=== PATIENT | female | born 1995 | race Caucasian/White ===

== ENCOUNTER 2017-07-12 20:26 | Emergency (ER) | payer OTHER ==
[2017-07-12 20:50] VITALS: BP 126/75; PULSE 83; TEMP 98.8; BMI 26.5
[2017-07-12] MEDS ORDERED: IBUPROFEN 400 MG TABLET (FP) PO ONE ×2 (21:24→21:29)
[2017-07-12] MEDS ORDERED: AMOX TR/POT CLAV 875MG/125MG TABLETS (FP) PO ONE (21:24)
[2017-07-12] MEDS ORDERED: AMOX TR/POT CLAV 875MG/125MG TABLETS (FP) ONE (21:29)
--- NOTE | 2017-07-12 21:31 | PDOC ---
History of Present Illness - General Chief Complaint: Sore Throat Stated Complaint: SORE THROAT Time Seen by Provider: 07/12/17 20:51 History Source: Patient Exam Limitations: No Limitations - History of Present Illness Initial Comments: 07/12/17 21:26 21yo Female patient with no significant past medical history presents to ED c/o left ear pain and sore throat. Patient reports symptoms began Saturday. She reports trouble swallowing solid foods without pain. She denies any other complaints at this time. LNMP: Jun 20. Timing/Duration: reports: week Severity: reports: moderate Episode Description: See HPI Possible Cause: Yes: no prior episodes Modifying Factors: worse with: activity, albuterol inhaler, albuterol nebulizer , antibiotics, coughing, lying down, oxygen, rest, other Associated Symptoms: reports: earache, sore throat. denies: denies symptoms, chest pain/soreness, cough, dizziness, facial pain, fever/chills, headache, lightheadedness, muscle aches, nasal congestion, nasal drainage, shortness of breath, sinus infection, wheezing, other Past History - Travel Traveled outside of the country in the last 30 days: No Close contact w/someone who was outside of country & ill: No - Past Medical History Allergies/Adverse Reactions: Allergies Allergy/AdvReac Type Severity Reaction Status Date / Time No Known Allergies Allergy Verified 07/12/17 20:50 Home Medications: Ambulatory Orders Amoxicillin/Potassium Clav [Augmentin 875-125 Tablet] 1 each PO Q12H #20 tablet 07/12/17 Ibuprofen 600 mg PO Q6H PRN #20 tablet 07/12/17 Other medical history: denies - Immunization History Immunization Up to Date: Yes - Suicide/Smoking/Psychosocial Hx Smoking History: Never smoked Have you smoked in the past 12 months: No Number of Cigarettes Smoked Daily: 0 Hx Alcohol Use: No Drug/Substance Use Hx: No Substance Use Type: None Respiratory Specific PMHX - Complaint Specific PMHX Angina: No Bronchitis: No Pneumonia: No Pulmonary Embolus: No TB (Tuberculosis): No Review of Systems - Review of Systems Able to Perform ROS?: Yes Is the patient limited Kittitian proficient: No Constitutional: No: Chills, Fever HEENTM: Yes: Ear Pain, Throat Pain All Other Systems: Reviewed and Negative *Physical Exam - Vital Signs Last Vital Signs Temp Pulse Resp BP Pulse Ox 98.8 F 83 18 126/75 99 07/12/17 20:48 07/12/17 20:48 07/12/17 20:48 07/12/17 20:48 07/12/17 20:48 - Physical Exam General Appearance: Yes: Nourished, Appropriately Dressed, Intoxicated. No: Apparent Distress, Mild Distress, Moderate Distress, Severe Distress HEENT: positive: EOMI, OUMAR, Normal ENT Inspection, Normal Voice, Symmetrical, Pharynx Normal, TM Dull (Left), Other (Left ear canal boggy, dull with soft, white material in canal.). negative: TMs Normal, Scleral Icterus (R), Scleral Icterus (L), Pharyngeal Erythema, Tonsillar Exudate, Tonsillar Erythema, Nasal Congestion, Rhinorrhea, TM Bulging, TM Erythema Neck: positive: Trachea midline, Normal Thyroid, Supple. negative: Stridor, Lymphadenopathy (R), Lymphadenopathy (L) Respiratory/Chest: positive: Lungs Clear, Normal Breath Sounds. negative: Chest Tender, Respiratory Distress, Accessory Muscle Use, Labored Respiration, Rapid RR Cardiovascular: positive: Regular Rhythm, Regular Rate Extremity: positive: Normal Capillary Refill, Normal Inspection, Normal Range of Motion. 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, Fully Oriented, Alert, Normal Mood/ Affect, Normal Response, Motor Strength 5/5 *DC/Admit/Observation/Transfer Diagnosis at time of Disposition: Otitis media Qualifiers: Otitis media type: suppurative Chronicity: acute Laterality: left Recurrence: not specified as recurrent Spontaneous tympanic membrane rupture: without spontaneous rupture Qualified Code(s): H66.002 - Acute suppurative otitis media without spontaneous rupture of ear drum, left ear - Discharge Dispostion Disposition: HOME Condition at time of disposition: Stable Admit: No - Prescriptions Prescriptions: Amoxicillin/Potassium Clav [Augmentin 875-125 Tablet] 1 each PO Q12H #20 tablet Ibuprofen 600 mg PO Q6H PRN #20 tablet PRN Reason: Mild Pain - Patient Instructions Printed Discharge Instructions: DI for Otitis Media (Middle Ear Infection)- Child Additional Instructions: Take medications as prescribed. Return if any concerns for further evaluation. Print Language: LAO
== END 2017-07-12 21:33 | disposition home or self-care (01) ==
LOC: JERFT 20:26
DX: H66.002 Acute suppurative otitis media without spontaneous rupture of ear drum, left ear (principal)
CPT/HCPCS: 99281-25

== ENCOUNTER 2017-12-24 17:09 | Emergency (ER) | payer OTHER ==
--- NOTE | 2017-12-24 17:19 | PDOC ---
Rapid Medical Evaluation Chief Complaint: Sore Throat Time Seen by Provider: 12/24/17 17:16 Medical Evaluation: Allergies Allergy/AdvReac Type Severity Reaction Status Date / Time No Known Allergies Allergy Verified 12/24/17 17:16 12/24/17 17:17 The patient presents with a chief complaint of: Sore throat and dysphagia, no fever, body aches[] I have performed a brief in-person evaluation of this patient. Pertinent physical exam findings: vss, [Erythema to posterior pharynx and tonsils, no exudates. TM, bilateral normal] I have ordered the following: [Rapid strep] The patient will proceed to the ED for further evaluation. 12/24/17 17:18 Discharge Disposition - Diagnosis Sore throat - Referrals - Patient Instructions - Post Discharge Activity
[2017-12-24 17:20] VITALS: BP 127/82; PULSE 82; TEMP 98.8; BMI 26.7
[2017-12-24] MEDS ORDERED: IBUPROFEN 100 MG/5 ML UNIT DOSE CUPS ONE (17:45)
--- NOTE | 2017-12-24 17:45 | PDOC ---
History of Present Illness - General Chief Complaint: Sore Throat Stated Complaint: PAIN Time Seen by Provider: 12/24/17 17:16 History Source: Patient Exam Limitations: No Limitations - History of Present Illness Initial Comments: 12/24/17 18:08 Patient is a 22-year-old female no past medical history who presents emergency department with 3 days of throat pain. Patient states that the pain came on gradually and now it hurts to swallow. Patient states that she's been unable to eat due to the pain. Denies cough, fevers, chills, nausea, vomiting. Past History - Travel Traveled outside of the country in the last 30 days: No Close contact w/someone who was outside of country & ill: No - Past Medical History Allergies/Adverse Reactions: Allergies Allergy/AdvReac Type Severity Reaction Status Date / Time No Known Allergies Allergy Verified 12/24/17 17:16 Home Medications: Ambulatory Orders Amoxicillin - [Amoxicillin 500mg Capsule -] 500 mg PO BID #14 capsule 12/24/17 COPD: No DVT: No Dementia: No - Immunization History Immunization Up to Date: Yes - Suicide/Smoking/Psychosocial Hx Smoking History: Never smoked Have you smoked in the past 12 months: No Number of Cigarettes Smoked Daily: 0 Information on smoking cessation initiated: No Hx Alcohol Use: No Drug/Substance Use Hx: No Substance Use Type: None Review of Systems - Review of Systems Able to Perform ROS?: Yes Comments:: 12/24/17 18:12 CONSTITUTIONAL: Absent: fever, chills, diaphoresis, generalized weakness, malaise, loss of appetite HEENT: Present: throat pain, difficulty swallowing. Absent: rhinorrhea, nasal congestion, throat swelling, mouth swelling, ear pain, eye pain, visual Changes RESPIRATORY: Absent: cough, shortness of breath, dyspnea with exertion, orthopnea, wheezing, stridor, hemoptysis GASTROINTESTINAL: Absent: abdominal pain, abdominal distension, nausea, vomiting, diarrhea, constipation, melena, hematochezia MUSCULOSKELETAL: Absent: myalgia, arthralgia, joint swelling SKIN: Absent: rash, itching, pallor NEUROLOGIC: Absent: headache, focal weakness or paresthesias, dizziness, unsteady gait, seizure, mental status changes, bladder or bowel incontinence Is the patient limited Bahamian proficient: No *Physical Exam - Vital Signs Last Vital Signs Temp Pulse Resp BP Pulse Ox 98.8 F 82 16 127/82 100 12/24/17 17:16 12/24/17 17:16 12/24/17 17:16 12/24/17 17:16 12/24/17 17:16 - Physical Exam Comments: 12/24/17 18:12 GENERAL: Well developed, well nourished. Awake and alert. No acute distress. HEENT: Normocephalic, atraumatic. PERRLA, EOMI. No conjunctival pallor. Sclera are non- icteric. Moist mucous membranes. Oropharynx is with erythema posteriorly. Tonsils 2+ b/l, no uvular deviation. NECK: Supple. Full ROM. No JVD. Carotid pulses 2+ and symmetric, without bruits. No thyromegaly. No lymphadenopathy. CARDIOVASCULAR: Regular rate and rhythm. No murmurs, rubs, or gallops. Distal pulses are 2+ and symmetric. PULMONARY: No evidence of respiratory distress. Lungs clear to auscultation bilaterally. No wheezing, rales or rhonchi. SKIN: Warm and dry. Normal capillary refill. No rashes. No jaundice. NEUROLOGICAL: Alert, awake, appropriate. Cranial nerves 2-12 intact. No deficits to light touch and temperature in face, upper extremities and lower extremities. No motor deficits in the in face, upper extremities and lower extremities. Normoreflexic in the upper and lower extremities. Normal speech. Toes are down- going bilaterally. Gait is normal without ataxia. Medical Decision Making - Medical Decision Making 12/24/17 18:13 Patient is 21-year-old female no past medical history who presents with 3 days of throat pain. Patient was rapid strep and RME. Currently waiting results. Motrin given for pain at this time. *DC/Admit/Observation/Transfer Diagnosis at time of Disposition: Pharyngitis Qualifiers: Pharyngitis/tonsillitis etiology: unspecified etiology Qualified Code(s): J02.9 - Acute pharyngitis, unspecified - Discharge Dispostion Disposition: HOME Condition at time of disposition: Stable Admit: No - Prescriptions Prescriptions: Amoxicillin - [Amoxicillin 500mg Capsule -] 500 mg PO BID #14 capsule - Referrals Referrals: Karen Abbott MD [Primary Care Provider] - - Patient Instructions Printed Discharge Instructions: DI for Pharyngitis/Tonsillopharyngitis -- Adult Additional Instructions: Your strep test was negative today. However given her symptoms your prescribed amoxicillin 500 mg. Please take this medication twice a day for one week. Please take Motrin 800 mg every 8 hours as needed for pain. Drink warm tea and gargle with salt water to help with her pain. Follow-up with your primary care doctor in 1 week if her symptoms are not getting better Return to the emergency department if you have worsening pain, difficulty swallowing, excessive drooling, changes in her voice, or have any other changes in your symptoms. - Post Discharge Activity Forms/Work/School Notes: Back to Work
[2017-12-24] MEDS ORDERED: IBUPROFEN 100 MG/5 ML UNIT DOSE CUPS PO ONE (17:49)
== END 2017-12-24 19:56 | disposition home or self-care (01) ==
LOC: JERFT 17:09
DX: J02.9 Acute pharyngitis, unspecified (principal)
CPT/HCPCS: 87070; 87430; 99281-25

== ENCOUNTER 2019-01-13 15:50 | Emergency (ER) | payer OTHER ==
[2019-01-13 15:56] VITALS: BP 119/63; PULSE 86; TEMP 98.1; BMI 27.4
--- NOTE | 2019-01-13 16:54 | PDOC ---
History of Present Illness - General Chief Complaint: Pain Stated Complaint: LT FOOT PAIN Time Seen by Provider: 01/13/19 16:31 - History of Present Illness Initial Comments: 01/13/19 16:53 23-year-old female without comorbidities presents for evaluation of left first second and third toe pain after metal easel fell on her toes 3 days ago. Past History - Past Medical History Allergies/Adverse Reactions: Allergies Allergy/AdvReac Type Severity Reaction Status Date / Time No Known Allergies Allergy Verified 01/13/19 15:52 Home Medications: Ambulatory Orders NK [No Known Home Medication] 01/13/19 COPD: No DVT: No Dementia: No - Immunization History Immunization Up to Date: Yes - Suicide/Smoking/Psychosocial Hx Smoking History: Never smoked Have you smoked in the past 12 months: No Number of Cigarettes Smoked Daily: 0 Hx Alcohol Use: No Drug/Substance Use Hx: No Substance Use Type: None Review of Systems - Review of Systems Musculoskeletal: Yes: See HPI *Physical Exam - Vital Signs Last Vital Signs Temp Pulse Resp BP Pulse Ox 98.1 F 86 18 119/63 99 01/13/19 15:52 01/13/19 15:52 01/13/19 15:52 01/13/19 15:52 01/13/19 15:52 - Physical Exam Comments: 01/13/19 16:53 Left great toe is mildly ecchymotic at the proximal nail fold. No gross sensorimotor deficits no swelling in the second and third toe diffuse tenderness throughout the toes no gross sensorimotor deficits. She is neurovascularly intact. ED Treatment Course - RADIOLOGY Radiology Studies Ordered: Category Date Time Status TOE(S) LEFT [RAD] Stat Radiology 01/13/19 16:53 Ordered Medical Decision Making - Medical Decision Making 01/13/19 17:06 no fx on raidograph today, WBAT with hardsole shoe and f/u with ortho *DC/Admit/Observation/Transfer Diagnosis at time of Disposition: Contusion, toes - Discharge Dispostion Disposition: HOME Condition at time of disposition: Stable Decision to Admit order: No - Referrals Referrals: Karen Abbott MD [Primary Care Provider] - Herve Abrams DO [Staff Physician] - - Patient Instructions Printed Discharge Instructions: Contusion Additional Instructions: No fracture on x-ray today. He may weight-bear as tolerated with the [place] shoe and follow-up with orthopedic surgery should you require further evaluation and treatment options. Return to the emergency room should symptoms worsen. Tylenol and Motrin as directed for pain. - Post Discharge Activity
== END 2019-01-13 17:11 | disposition home or self-care (01) ==
LOC: JERFT 15:50
DX: S90.122A Contusion of left lesser toe(s) without damage to nail, initial encounter (principal); W20.8XXA Other cause of strike by thrown, projected or falling object, initial encounter; Y93.89 Activity, other specified; Y92.89 Other specified places as the place of occurrence of the external cause; Y99.8 Other external cause status
CPT/HCPCS: 73660-TC-LT-FY; 99281-25

== ENCOUNTER 2019-02-21 17:27 | Emergency (ER) | payer OTHER ==
[2019-02-21 17:33] VITALS: TEMP 98; BMI 27.4
[2019-02-21] MEDS ORDERED: KETOROLAC TROMETHAMINE 60 MG/2 ML VIAL IM ONE (17:44)
--- NOTE | 2019-02-21 17:53 | PDOC ---
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 02/21/19 COPD: No DVT: No Dementia: No - Immunization History Immunization Up to Date: Yes - Suicide/Smoking/Psychosocial Hx Smoking History: Never smoked Have you smoked in the past 12 months: No Number of Cigarettes Smoked Daily: 0 Information on smoking cessation initiated: No Hx Alcohol Use: No Drug/Substance Use Hx: No Substance Use Type: None Review of Systems - Review of Systems Able to Perform ROS?: Yes Is the patient limited Telugu proficient: No Constitutional: No: Chills, Fever Musculoskeletal: Yes: Back Pain. No: Gout, Joint Pain, Joint Swelling, Muscle Pain, Muscle Weakness, Neck Pain, Joint Stiffness Neurological: No: Headache, Numbness, Tingling, Weakness *Physical Exam - Vital Signs Last Vital Signs Temp Pulse Resp BP Pulse Ox 98 F 109 H 20 121/71 98 02/21/19 17:31 02/21/19 17:31 02/21/19 17:31 02/21/19 17:31 02/21/19 17:31 - Physical Exam General Appearance: Yes: Nourished Respiratory/Chest: positive: Chest Tender (anterior R rib region, ribs 5-6, no ecchymosis), Lungs Clear, Normal Breath Sounds Cardiovascular: positive: Regular Rhythm, Regular Rate, S1, S2 Musculoskeletal: positive: Other (+ tenderness in coccyx region) Extremity: positive: Normal Capillary Refill Integumentary: positive: Normal Color 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: 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, Fully Oriented ED Treatment Course - RADIOLOGY Radiology Studies Ordered: Category Date Time Status COCCYX [RAD] Stat Radiology 02/21/19 17:45 Ordered SPINE-LUMBAR SACRAL [RAD] Stat Radiology 02/21/19 17:45 Ordered Medical Decision Making - Medical Decision Making 02/21/19 17:51 23y/o F with 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 bone 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, pt denies LOC or head trauma pain is localized to the tail bone 02/21/19 19:33 prelim xray no fx donut pillow advised when seated motrin prn pain *DC/Admit/Observation/Transfer Diagnosis at time of Disposition: Tail bone pain - Discharge Dispostion Disposition: HOME Condition at time of disposition: Stable Decision to Admit order: No - Prescriptions Prescriptions: Naproxen [EC-Naprosyn] 375 mg PO BID 10 Days #20 tablet.dr - Referrals Referrals: Karen Abbott MD [Primary Care Provider] - - Patient Instructions Printed Discharge Instructions: DI for Coccydynia Additional Instructions: Your preliminary xray read was negative for fractures today, if the impression is different on the official read, you will be contacted. warm compresses advised please purchase an donut pillow from any pharmacy to seat on take meds as prescribed follow up with your primary care doctor Return to the ER if worsening symptoms occurs. - Post Discharge Activity
[2019-02-21] MEDS ORDERED: KETOROLAC TROMETHAMINE 60 MG/2 ML VIAL ONE (18:13)
[2019-02-21 19:42] VITALS: BP 120/68; PULSE 89
== END 2019-02-21 19:41 | disposition home or self-care (01) ==
LOC: JERFT 17:27
PROC: 3E0233Z Introduction of Anti-inflammatory into Muscle, Percutaneous Approach (ICD-10-PCS; principal; 2019-02-21)
DX: S39.82XA Other specified injuries of lower back, initial encounter (principal); M54.5 Low back pain; W10.8XXA Fall (on) (from) other stairs and steps, initial encounter; Y93.89 Activity, other specified; Y92.038 Other place in apartment as the place of occurrence of the external cause; Y99.8 Other external cause status
CPT/HCPCS: 71046-TC-FY; 71101-TC-RT-FY; 72100-TC-FY; 72220-TC-FY; 84703; 96372; 99281-25